=== PATIENT | male | born 1955 | race Caucasian/White ===

== ENCOUNTER 2024-05-30 11:09 | Day surgery (SDC) | payer MEDICARE ==
[~2024-05-30] VITALS: Ht 185.4 cm; Wt 118.1 kg
[~2024-05-30 11:09] MED LIST: GLIM2TAB29 PO; LR 1,000 ML IV SCH; METF10004 PO
[2024-05-30] MEDS: ATROPINE SULFATE 1% OPHTH SOLN 2ML BTL OD SCH (13:22)
[2024-05-30] MEDS: TETRACAINE 0.5% OPHTH SOLN 4ML OD SCH (13:22)
[2024-05-30] MEDS: PHENYLEPHRINE 2.5% OPHTH SOL 2ML OD SCH (13:22)
[2024-05-30] MEDS: FLURBIPROFEN 0.03% OPHTH SOLN 2.5 ML OD SCH (13:22)
[2024-05-30] MEDS: LIDOCAINE 1% SDV 5ML VIAL As Ordered ONE (13:43)
[2024-05-30] MEDS: CEFUROXIME 1MG/0.1ML INTRACAMERAL INJ As Ordered ONE (13:43)
[2024-05-30] MEDS ORDERED: MIDAZOLAM INJ 2MG/2ML VIAL As Ordered ONE (13:44)
[2024-05-30] MEDS ORDERED: fentaNYL 100 MCG/2 ML INJECTION As Ordered ONE (13:44)
[2024-05-30 14:10] VITALS: BP 139/75; TEMP 97.2; O2SAT 95
== END 2024-05-30 14:30 | disposition home or self-care (01) ==
LOC: M SDC 11:09
PROVIDERS: ATTEND Ophthalmology
DX: H25.11 Age-related nuclear cataract, right eye (principal); E11.9 Type 2 diabetes mellitus without complications; Z79.84 Long term (current) use of oral hypoglycemic drugs; Z87.891 Personal history of nicotine dependence
CPT/HCPCS: 66984; J0697; J2250; J3010; V2632

== ENCOUNTER 2024-06-27 12:53 | Day surgery (SDC) | payer MEDICARE ==
[~2024-06-27] VITALS: Ht 185.4 cm; Wt 118.8 kg
[~2024-06-27 12:53] MED LIST changes: +CYCLOPENTOLATE 1% OPHTH SOLN 2ML BTL OS SCH; +FLURBIPROFEN 0.03% OPHTH SOLN 2.5 ML OS SCH; +PHENYLEPHRINE 2.5% OPHTH SOL 2ML OS SCH; +TETRACAINE 0.5% OPHTH SOLN 4ML OS SCH
[2024-06-27] MEDS: PHENYLEPHRINE 2.5% OPHTH SOL 2ML OS SCH (14:05)
[2024-06-27] MEDS: FLURBIPROFEN 0.03% OPHTH SOLN 2.5 ML OS SCH (14:05)
[2024-06-27] MEDS: TETRACAINE 0.5% OPHTH SOLN 4ML OS SCH (14:05)
[2024-06-27] MEDS: CYCLOPENTOLATE 1% OPHTH SOLN 2ML BTL OS SCH (14:05)
[2024-06-27] MEDS ORDERED: MIDAZOLAM INJ 2MG/2ML VIAL As Ordered ONE (14:27)
[2024-06-27] MEDS ORDERED: fentaNYL 100 MCG/2 ML INJECTION As Ordered ONE (14:27)
[2024-06-27] MEDS: LIDOCAINE 1% SDV 5ML VIAL As Ordered ONE (14:54)
[2024-06-27] MEDS: CEFUROXIME 1MG/0.1ML INTRACAMERAL INJ As Ordered ONE (15:05)
[2024-06-27 15:11] VITALS: BP 166/88; TEMP 97.1; O2SAT 97
== END 2024-06-27 15:31 | disposition home or self-care (01) ==
LOC: M SDC 12:53
PROVIDERS: ATTEND Ophthalmology
DX: H25.9 Unspecified age-related cataract (principal); E11.9 Type 2 diabetes mellitus without complications; Z79.84 Long term (current) use of oral hypoglycemic drugs; Z98.41 Cataract extraction status, right eye
CPT/HCPCS: 66984; J0697; J2250; J3010; V2632